=== PATIENT | male | born 1945 | race Asian ===

== ENCOUNTER → 2017-08-12 | Outpatient (CLI) | payer MEDICARE, MEDICAID ==
[2017-08-12 17:49] LABS: BASO # 0.1 10^3/uL (0.0-0.2); BASO % 0.9 % (0.0-1.0); EOS # 0.2 10^3/uL (0.0-0.50); EOS % 2.8 % (0.0-3.0); HEMATOCRIT 42.6 % (42.0-52.0); HEMOGLOBIN 13.8 g/dl (14.0-18.0); IMMATURE GRANULOCYTE % 0.3 % (0-3.0); LYMPH # 1.2 10^3/uL (1.5-4.5); LYMPH % 21.2 % (24.0-44.0); MEAN CORPUSCULAR HEMOGLOBIN 30.9 pg (27.0-33.0); MEAN CORPUSCULAR HGB CONC 32.4 g/dl (32.0-36.5); MEAN CORPUSCULAR VOLUME 95.3 fl (80.0-96.0); MONO # 0.4 10^3/uL (0.0-0.8); MONO % 7.5 % (0.0-5.0); NEUTROPHILS # 3.9 10^3/uL (1.8-7.7); NEUTROPHILS % 67.3 % (36.0-66.0); PLATELET COUNT, AUTOMATED 198 10^3/uL (150-450); RED BLOOD COUNT 4.47 10^6/uL (4.30-6.10); RED CELL DISTRIBUTION WIDTH 12.7 % (11.5-14.5); WHITE BLOOD COUNT 5.8 10^3/uL (4.0-10.0)
[2017-08-12 18:09] LABS: TOTAL 25(OH) VITAMIN D 12.9 NG/ML (30.0-100.0)
[2017-08-12 18:11] LABS: ALBUMIN 3.8 GM/DL (3.2-5.2); ALBUMIN/GLOBULIN RATIO 1.23 (1.00-1.93); ALKALINE PHOSPHATASE 80 U/L (45-117); ALT/SGPT 28 U/L (12-78); ANION GAP 5 MEQ/L (8-16); AST/SGOT 37 U/L (7-37); BILIRUBIN,TOTAL 0.5 MG/DL (0.2-1.0); BLOOD UREA NITROGEN 14 MG/DL (7-18); CARBON DIOXIDE LEVEL 32 MEQ/L (21-32); CHLORIDE LEVEL 102 MEQ/L (98-107); CHOLESTEROL LEVEL 183 MG/DL (<200); CHOLESTEROL RISK RATIO 2.152 (<5); CREATININE FOR GFR 0.91 MG/DL (0.70-1.30); FERRITIN 134 NG/ML (26-388); FREE T4 0.74 NG/DL (0.76-1.46); GLOMERULAR FILTRATION RATE > 60.0 (>42); GLUCOSE, FASTING 70 MG/DL (70-100); HDL CHOLESTEROL 85 MG/DL (>40); IRON (FE) 63 UG/DL (65-175); LDL CHOLESTEROL 83.6 MG/DL (<100); NON-HDL-C 98 MG/DL; PERCENT SATURATION 23.2 % (19.7-50.0); POTASSIUM SERUM 4.8 MEQ/L (3.5-5.1); SODIUM LEVEL 139 MEQ/L (136-145); TOTAL IRON BINDING CAPACITY 272 UG/DL (250-450); TOTAL PROTEIN 6.9 GM/DL (6.4-8.2); TRIGLYCERIDES LEVEL 72 MG/DL (<150)
[2017-08-12 18:30] LABS: ESTIMATED AVERAGE GLUCOSE 146 MG/DL (60-110); HEMOGLOBIN A1c 6.7 %
== END ==
LOC: M LRY 12:34
DX: N40.0 Benign prostatic hyperplasia without lower urinary tract symptoms (principal); E11.9 Type 2 diabetes mellitus without complications; D50.9 Iron deficiency anemia, unspecified; Z85.028 Personal history of other malignant neoplasm of stomach; Z79.899 Other long term (current) drug therapy
CPT/HCPCS: 83550

== ENCOUNTER 2018-08-15 18:31 | Emergency (ER) | payer MEDICAID, MEDICARE ==
[~2018-08-15] VITALS: Ht 152.4 cm; Wt 50.0 kg
[2018-08-15] MEDS ORDERED: TAMS1CAP17 (18:40)
[2018-08-15] MEDS ORDERED: CYAN1000VL (18:40)
[2018-08-15] MEDS ORDERED: OLME40TA (18:40)
[2018-08-15] MEDS ORDERED: LOSA50TA88 (18:40)
[2018-08-15] MEDS ORDERED: METF-839 (18:40)
[2018-08-15] MEDS ORDERED: VALS1TAB47 (18:40)
--- NOTE | 2018-08-15 19:45 | REPVR ---
EXAM: US Scrotum and US Duplex Artery or Vein, Scrotum, Limited EXAM DATE/TIME: 08/15/2018 7:23 PM CLINICAL HISTORY: 73 years old, male; Pain; Scrotum pain; Additional info: Pain left testicle TECHNIQUE: Real-time ultrasound of the scrotum. Real-time duplex ultrasound scan of the arterial or venous flow of the scrotum with B-mode, color Doppler flow and spectral waveform analysis. Limited exam. COMPARISON: No relevant prior studies available. FINDINGS: Right Testicle: The right testicle measures 4.0 x 1.6 x 2.0 cm. Normal color and spectral Doppler blood flow. Arterial peak systolic velocity is 2.5 cm/s. Left Testicle: The left testicle measures 4.0 x 2.3 x 2.7 cm. Increased vascularity (color and spectral Doppler blood flow) consistent with orchitis. Arterial peak systolic velocity is 8.0 cm/s. Epididymides: The right epididymal head measures 1.1 cm. Right epididymal head cysts/spermatoceles, the larger measuring up to 0.8 cm. The left epididymal head measures 1.0 cm. Increased vascularity on the left, consistent with left epididymitis. Scrotum: A left scrotal calcification likely representing a scrotal colette measures 4.6 mm. IMPRESSION: Findings consistent with left epididymoorchitis. Electronically signed by: Paula Christianson On 08/15/2018 19:45:12 PM
[2018-08-15 20:57] VITALS: BP 142/81
[2018-08-15] MEDS ORDERED: CIPROFLOXACIN 500 MG TAB PO ONE (21:00)
[2018-08-15] MEDS ORDERED: CIPR-249 PO (21:02)
== END 2018-08-15 21:14 | disposition home or self-care (01) ==
LOC: M ED 18:31
DX: N45.1 Epididymitis (principal); N45.2 Orchitis

== ENCOUNTER → 2018-09-13 | Outpatient (CLI) | payer MEDICARE ==
[~2018-09-13] MED LIST: CIPR-249 PO; CYAN1000VL; LOSA50TA88; METF-839; OLME40TA; TAMS1CAP17; VALS1TAB47
[2018-09-13 18:00] LABS: BASO # 0.1 10^3/uL (0.0-0.2); EOS # 0.4 10^3/uL (0.0-0.50); EOS % 7.5 % (0.0-3.0); HEMOGLOBIN 13.8 g/dl (13.5-17.5); LYMPH # 1.2 10^3/uL (1.5-4.5); LYMPH % 25.3 % (24.0-44.0); MEAN CORPUSCULAR HEMOGLOBIN 30.1 pg (27.0-33.0); MEAN CORPUSCULAR HGB CONC 31.4 g/dl (32.0-36.5); MEAN CORPUSCULAR VOLUME 96.1 fl (80.0-96.0); MONO # 0.4 10^3/uL (0.0-0.8); MONO % 8.1 % (0.0-5.0); NEUTROPHILS # 2.7 10^3/uL (1.8-7.7); NEUTROPHILS % 57.3 % (36.0-66.0); PLATELET COUNT, AUTOMATED 156 10^3/uL (150-450); RED BLOOD COUNT 4.58 10^6/uL (4.30-6.10); WHITE BLOOD COUNT 4.8 10^3/uL (4.0-10.0)
[2018-09-13 18:38] LABS: ALBUMIN 3.7 GM/DL (3.2-5.2); ALT/SGPT 24 U/L (12-78); BILIRUBIN,TOTAL 0.4 MG/DL (0.2-1.0); BLOOD UREA NITROGEN 15 MG/DL (7-18); CALCIUM LEVEL 8.5 MG/DL (8.8-10.2); CARBON DIOXIDE LEVEL 30 MEQ/L (21-32); CHLORIDE LEVEL 105 MEQ/L (98-107); CHOLESTEROL LEVEL 221 MG/DL (<200); CHOLESTEROL RISK RATIO 3.564 (<5); CREATININE FOR GFR 0.99 MG/DL (0.70-1.30); FREE T4 0.81 NG/DL (0.76-1.46); GLOMERULAR FILTRATION RATE > 60.0 (>42); GLUCOSE, FASTING 88 MG/DL (70-100); HDL CHOLESTEROL 62 MG/DL (>40); LDL CHOLESTEROL 136 MG/DL (<100); NON-HDL-C 159 MG/DL; POTASSIUM SERUM 4.3 MEQ/L (3.5-5.1); SODIUM LEVEL 142 MEQ/L (136-145); TOTAL 25(OH) VITAMIN D 28.6 NG/ML (30.0-100.0); TOTAL PROTEIN 7.1 GM/DL (6.4-8.2); TRIGLYCERIDES LEVEL 117 MG/DL (<150); VITAMIN B12 LEVEL 436 PG/ML (247-911)
== END ==
LOC: M LRY 11:33
PROVIDERS: ATTEND Nurse Practitioner Family
DX: R53.83 Other fatigue (principal); I10 Essential (primary) hypertension; E78.2 Mixed hyperlipidemia; E55.9 Vitamin D deficiency, unspecified; E53.8 Deficiency of other specified B group vitamins; E11.9 Type 2 diabetes mellitus without complications

== ENCOUNTER 2019-04-03 08:06 | Day surgery (SDC) | payer MEDICARE ==
[~2019-04-03] VITALS: Ht 160 cm; Wt 45.4 kg
[~2019-04-03 08:06] MED LIST changes: +IRBE150T12 PO; +NS 1,000 ML IV ONE; -TAMS1CAP17; +TAMS1CAP17 PO; -VALS1TAB47; +VALS1TAB67
[2019-04-03] MEDS ORDERED: PROPOFOL 200 MG/20 ML VIAL As Ordered ONE (10:14)
[2019-04-03] MEDS ORDERED: LIDOCAINE 2% INJ 100 MG/5 ML SDV (FOR ANES.) As Ordered ONE (10:14)
--- NOTE | 2019-04-03 10:15 | ROOR ---
Patient Name: Rocael Collazo Procedure Date: 04/03/2019 9:59 AM Date of : 1945 Age: 74 Room: [facility] Gender: Male Note Status: Finalized Procedure: Upper GI endoscopy Indications: Heartburn, Personal history of malignant gastric neoplasm Providers: Jacob Bejarano MD Referring MD: Navin Sherman Requesting Provider: Medicines: Monitored Anesthesia Care Complications: No immediate complications. Procedure: Pre-Anesthesia Assessment: - The heart rate, respiratory rate, oxygen saturations, blood pressure, adequacy of pulmonary ventilation, and response to care were monitored throughout the procedure. The Endoscope was introduced through the mouth, and advanced to the second part of duodenum. The upper GI endoscopy was accomplished without difficulty. The patient tolerated the procedure well. Findings: The Z-line was regular and was found 40 cm from the incisors. Evidence of a Marilynn-en-Y gastrojejunostomy was found. The gastrojejunal anastomosis was characterized by healthy appearing mucosa. This was traversed. The aeypp-rs-djsnsgu limb was characterized by healthy appearing mucosa. The exam was otherwise without abnormality. Impression: - Z-line regular, 40 cm from the incisors. - Marilynn-en-Y gastrojejunostomy with gastrojejunal anastomosis characterized by healthy appearing mucosa. - The examination was otherwise normal. - No specimens collected. - The examination was otherwise normal. Recommendation: - Patient has a contact number available for emergencies. The signs and symptoms of potential delayed complications were discussed with the patient. Return to normal activities tomorrow. Written discharge instructions were provided to the patient. - Resume previous diet. - Discharge patient to home. - Follow an antireflux regimen. - Continue present medications. - Return to referring physician. - Repeat upper endoscopy in 5 years for surveillance. - The findings and recommendations were discussed with the patient's family. Jacob Bejarano MD Jacob Bejarano MD 04/03/2019 10:15:00 AM Electronically signed by Jacob Bejarano MD Number of Addenda: 0 Note Initiated On: 04/03/2019 9:59 AM Estimated Blood Loss: Estimated blood loss: none.
--- NOTE | 2019-04-03 10:31 | ROOR ---
Patient Name: Rocael Collazo Procedure Date: 04/03/2019 10:00 AM Date of : 1945 Age: 74 Room: [facility] Gender: Male Note Status: Finalized Procedure: Total Colonoscopy to Cecum + Biopsy Polypectomy Indications: Screening for colorectal malignant neoplasm Providers: Jacob Bejarano MD Referring MD: Navin Sherman Requesting Provider: Medicines: Monitored Anesthesia Care Complications: No immediate complications. Procedure: Pre-Anesthesia Assessment: - The heart rate, respiratory rate, oxygen saturations, blood pressure, adequacy of pulmonary ventilation, and response to care were monitored throughout the procedure. The Colonoscope was introduced through the anus and advanced to the cecum, identified by appendiceal orifice and ileocecal valve. The colonoscopy was performed without difficulty. The patient tolerated the procedure well. The quality of the bowel preparation was excellent. Findings: The perianal and digital rectal examinations were normal. Non-bleeding internal hemorrhoids were found during retroflexion. The hemorrhoids were small and Grade I (internal hemorrhoids that do not prolapse). A small polyp was found in the proximal ascending colon. The polyp was sessile. The polyp was removed with a jumbo cold forceps. Resection and retrieval were complete. A small polyp was found at 20 cm proximal to the anus. The polyp was sessile. The polyp was removed with a jumbo cold forceps. Resection and retrieval were complete. No other significant abnormalities were identified in a careful examination of the remainder of the colon. Impression: - Non-bleeding internal hemorrhoids. - One small polyp in the proximal ascending colon, removed with a jumbo cold forceps. Resected and retrieved. - One small polyp at 20 cm proximal to the anus, removed with a jumbo cold forceps. Resected and retrieved. - The exam was otherwise normal to the cecum. Recommendation: - Patient has a contact number available for emergencies. The signs and symptoms of potential delayed complications were discussed with the patient. Return to normal activities tomorrow. Written discharge instructions were provided to the patient. - High fiber diet. - Discharge patient to home. - Continue present medications. - Await pathology results. - Telephone GI clinic for pathology results in 1 week. - Repeat colonoscopy in 5 years for surveillance based on pathology results. - Return to referring physician. - The findings and recommendations were discussed with the patient's family. Jacob Bejarano MD Jacob Bejarano MD 04/03/2019 10:31:40 AM Electronically signed by Jacob Bejarano MD Number of Addenda: 0 Note Initiated On: 04/03/2019 10:00 AM Estimated Blood Loss: Estimated blood loss: none.
[2019-04-03 10:50] VITALS: BP 139/73
== END 2019-04-03 11:02 | disposition home or self-care (01) ==
LOC: M OPP 08:06
PROVIDERS: ATTEND Internal Medicine Gastroenterology
DX: Z12.11 Encounter for screening for malignant neoplasm of colon (principal); K64.0 First degree hemorrhoids; D12.2 Benign neoplasm of ascending colon; D12.5 Benign neoplasm of sigmoid colon; R12 Heartburn; Z85.028 Personal history of other malignant neoplasm of stomach; Z98.0 Intestinal bypass and anastomosis status; I10 Essential (primary) hypertension; Z92.21 Personal history of antineoplastic chemotherapy; E11.9 Type 2 diabetes mellitus without complications; Z86.73 Personal history of transient ischemic attack (TIA), and cerebral infarction without residual deficits; N40.1 Benign prostatic hyperplasia with lower urinary tract symptoms; Z79.84 Long term (current) use of oral hypoglycemic drugs; Z79.899 Other long term (current) drug therapy